=== PATIENT | male | born 1940 | race Caucasian/White ===

== ENCOUNTER → 2023-04-09 15:56 | Outpatient (REF) | payer MEDICARE, OTHER, SELFPAY | LOC: PAVMRI 15:56 | PROVIDERS: ATTENDING PHYSICIAN Orthopaedic Surgery; FAMILY PHYSICIAN Family Medicine | DX: M77.8 Other enthesopathies, not elsewhere classified (principal) | CPT/HCPCS: 73221 ==

== ENCOUNTER 2023-05-04 06:18 | Day surgery (SDC) | payer MEDICARE, OTHER, SELFPAY ==
[2023-05-04] VITALS (8 sets, daily range): BP systolic 125–177; BP diastolic 50–84; BMI 25.5
[2023-05-04] MEDS: CELEBREX 200 MG PO (12:04)
[2023-05-04] MEDS: NORMOSOL-R 1000 IV (12:07)
== END 2023-05-04 15:55 | disposition home or self-care (01) ==
LOC: SDS 06:18
PROVIDERS: ATTENDING PHYSICIAN Orthopaedic Surgery
DX: G56.02 Carpal tunnel syndrome, left upper limb (principal); M65.9 Synovitis and tenosynovitis, unspecified
CPT/HCPCS: 64721; 25115; 88304; 87070; 87075; 87205

== ENCOUNTER → 2023-05-07 12:58 | Outpatient (REF) | payer MEDICARE, OTHER, SELFPAY | LOC: DHCBC HW 12:58 | PROVIDERS: ATTENDING PHYSICIAN Internal Medicine Cardiovascular Disease; FAMILY PHYSICIAN Family Medicine | DX: R60.0 Localized edema (principal) | CPT/HCPCS: 93306 ==

== ENCOUNTER 2023-11-12 14:43 | Emergency (ER) | payer MEDICARE, OTHER, SELFPAY ==
[2023-11-12 14:47] VITALS: BP 148/73
--- NOTE | 2023-11-12 15:17 | ED.GENMED ---
History of Present Illness
<JACQUI Adams Last Filed: 11/12/23 19:49>
General
Chief Complaint: Skin Surface Trauma
Source: patient
Exam Limitations: none
Time Seen by Provider: 11/12/23 15:09
Nursing documentation reviewed up to this point in time: agreed with
History of Present Illness
History of Present Illness:
83-year-old male with past medical history of COPD, A-fib on Eliquis presenting emergency department today with concerns of a laceration to his left index finger. Patient was initially seen at urgent care they sent him here because of bone
involvement and his laceration. Patient states that today he was working with a table saw to fix a bench when he excellently cut his left index finger. Patient is right-handed. Patient states that it profusely bled. Patient reports that at
urgent care, he noted that the film demonstrated distal phalanx fracture. Patient denies any other injuries, denies any falls. Patient denies any sensory loss or paresthesias noted to his fingers. Patient denies any inability to range his fingers
or joints his upper extremities.
Past History
<JACQUI Adams Last Filed: 11/12/23 19:49>
Past History
ED Past Medical History: Arrthythmia (Atrial fib), COPD, GERD, HTN and Hypercholesterolemia
ED Past Surgical History: Cardiac (Stent X1, ablation) and Orthopedic
Social History
Tobacco: Former smoker
Alcohol: None
Drug: None
Personal:
Living: with family
Employment: Retired
Family History
Family History: Other
Review of Systems
<JACQUI Adams Last Filed: 11/12/23 19:49>
Review of Systems
All Other Systems: ROS reviewed and negative except as documented in HPI and ROS
Phy Exam
<JACQUI Adams Last Filed: 11/12/23 19:49>
Physical Exam
Physical Exam:
General: Patient is well appearing and in no acute distress; non-toxic
Skin: Warm and dry, there is a laceration on the left index finger extending circumferentially from the anterior surface of the distal finger to the posterior surface near the nail bed. There is no subungual hematoma.
Head: Normocephalic, atraumatic
Eyes: Sclera non-icteric. EOMs intact.
Cardiac: Regular rate
Pulm: Normal respiratory effort
Musculoskeletal: 5 out of 5 strength in phalanges. FDS/FDP testing intact. No flexion/extension deformity, no obvious foreign body.
Neuro: CN II-XII intact, no focal neurologic deficits. Sensation intact to light touch in bilateral upper extremities.
Psychiatric: Appropriate mood and affect.
Course
<Chata Esparza PA-C - Last Filed: 11/12/23 19:49>
Orders/Labs/Results
Orders:
Orders
11/12/23 16:19
Cephalexin Monohydrate [Keflex] 500 mg PO NOW STA
Vital Signs
Initial and Last Documented VS:
Initial Vital Signs
Temp Pulse Resp BP Pulse Ox
97.9 F 64 16 148/73 95
11/12/23 14:47 11/12/23 14:47 11/12/23 14:47 11/12/23 14:47 11/12/23 14:47
Last Documented Vital Signs
Temp Pulse Resp BP Pulse Ox
97.9 F 77 20 124/76 99
11/12/23 14:47 11/12/23 16:50 11/12/23 16:50 11/12/23 16:50 11/12/23 16:50
Keerthilt;Manish Gonzalez DO - Last Filed: 11/12/23 20:10>
Orders/Labs/Results
Orders:
Orders
11/12/23 16:19
Cephalexin Monohydrate [Keflex] 500 mg PO NOW STA
Vital Signs
Initial and Last Documented VS:
Initial Vital Signs
Temp Pulse Resp BP Pulse Ox
97.9 F 64 16 148/73 95
11/12/23 14:47 11/12/23 14:47 11/12/23 14:47 11/12/23 14:47 11/12/23 14:47
Last Documented Vital Signs
Temp Pulse Resp BP Pulse Ox
97.9 F 77 20 124/76 99
11/12/23 14:47 11/12/23 16:50 11/12/23 16:50 11/12/23 16:50 11/12/23 16:50
Procedures
<JACQUI Adams Last Filed: 11/12/23 19:49>
Laceration Closure
Left Finger:
Status of Wound: clean
Size of Wound in cm: 2.5
Description of Wound Edges: ragged and macerated
Preparation: cleaned with saline
Anesthesia: 1% Lidocaine
Wound exploration: explored to base- no FB and no tendon involvement
Type of Closure: single layer closure
Skin Closure Material: 4-0 prolene
Number of sutures: 9
<JACQUI Adams Last Filed: 11/12/23 19:49>
MDM/Problems Addressed
Differential Diagnosis Includes:
ddx include abrasion, laceration, tendon injury, phalanx fracture
MDM/Problems Addressed:
Finger laceration:
83-year-old male with past medical history of COPD, A-fib on Eliquis presenting emergency department today with concerns of a laceration to his left index finger. Patient was initially seen at urgent care they sent him here because of bone
involvement and his laceration. On physical exam, he has a laceration extending from the anterior surface of the distal first index finger to the posterior surface. Patient's x-ray notes his distal phalanx fracture in the same area. The wound was
thoroughly irrigated, wound was repaired with sutures, patient tolerated procedure well. Wound care precautions and return precautions discussed. Gave referral for hand surgery, patient placed in splint. Patient started on antibiotics
prophylactically. Patient stable for discharge.
Chronic conditions affecting care:
A-fib on Eliquis
<Chata Esparza PA-C - Last Filed: 11/12/23 19:49>
*Critical Care Note
Total Time (30-74mins, 75-104mins- exclusive of procedures): Not Applicable
ED Attending Note
<Chata Esparza PA-C - Last Filed: 11/12/23 19:49>
-
Portions of this chart may have been created with voice recognition software.� Occasional wrong word or��sound alike� substitutions may have occurred due to the inherent limitations of voice recognition software.
<Manish Gonzalez, - Last Filed: 11/12/23 20:10>
ED Attending Note
Patient seen and examined by attending physician: Yes
I performed the substantive portion of visit, reviewed & personally made and approve the management plan that is documented in note by myself or ANTONIA.: Yes
ED Attending Note:
I agree with Chata's note
Patient suffered injury to his left index finger while using a table saw. Patient went to an urgent care where they noted he had bony involvement.
Physical exam
Laceration noted to the radial aspect of the left index finger from the tip to roughly middle phalynx.
X-ray from urgent care showed distal phalynx fx.
Plan is to close wound, abx, hand f/u
Discharge Plan
Departure
Patient Disposition: Home (Routine Discharge)
Date of Disposition: 11/12/23
Time of Disposition: 16:44
Patient with high blood pressure during this ER visit?: Yes
Condition: Good
Discharge Problem:
Laceration of finger, Fracture of distal phalanx of finger, open
Instructions: Wound Care (DC), Laceration Repair With Stitches (DC), BLOOD PRESSURE
Prescriptions:
New
cephalexin 500 mg capsule
500 mg PO QID 7 Days Qty: 28 0RF
No Action
multivitamin [Daily Multi-Vitamin] 1 EACH tablet
1 ea PO DAILY@1200
gabapentin 300 MG capsule
300 mg PO TID
nitroglycerin 0.4 MG tablet, sublingual
0.4 mg sublingual [id number] PRN (Reason: chest pain) Qty: 30 3RF
morphine 15 MG tablet extended release
15 mg PO BID
Eliquis 5 MG tablet
5 mg PO BID
albuterol sulfate 2.5 MG/3 ML solution for nebulization
2.5 mg inhalation PRN PRN (Reason: sob)
cyanocobalamin (vitamin B-12) 1,000 MCG tablet
1,000 mcg PO DAILY
sertraline 25 MG tablet
50 mg PO DAILY
metoprolol succinate 25 MG tablet extended release 24 hr
50 mg PO HS
finasteride 5 MG tablet
5 mg PO DAILY@1200
prednisone 5 mg tablet
2.5 mg PO DAILY@1200
hydrocodone-acetaminophen 10-325 mg tablet
1 tab PO QID
pantoprazole 40 mg tablet,delayed release (DR/EC)
40 mg PO DAILY
Qvar RediHaler 40 mcg/actuation HFA aerosol breath activated
1 inh INHALATION BIDPRN PRN (Reason: SOB/breathing issues )
sennosides [Senokot] 8.6 mg Tablet
17.2 mg PO PRN PRN (Reason: constipation)
ascorbic acid (vitamin C) [Vitamin C] 500 mg Tablet
500 mg PO DAILY
furosemide 20 mg Tablet
20 mg PO DAILY
alfuzosin 10 mg Tablet Extended Release 24 Hr
10 mg PO DAILY
calcium
1 tab PO DAILY
acetaminophen 500 mg Tablet
1,000 mg PO Q6H PRN (Reason: pain)
Referrals:
NONE,* [Active] -
Mega Sanchez MD [Active] - Call in 1-3 days for appt
Activity Restrictions/Additional Instructions:
Keflex has been sent to your pharmacy. Starting tomorrow, please take one tablet 4 times daily for 7 days.
Please keep the wound dry for 24 hours, after 24 hours, you can allow mild soapy water to run over the wound. Please do not scrub the wound. If you notice any pussy drainage from the wound, increasing pain, surrounding redness, fevers or chills,
please return to the emergency department.
Please call the attached number to schedule an appointment to follow-up with hand surgeon.
Interventions
Interventions:
*Risk Screen - Suicide Last Done: 11/12/23 15:20
*General Assessment Last Done: 11/12/23 15:20
*Neglect/Abuse Screening Last Done: 11/12/23 15:20
*Nursing Disposition Last Done: 11/12/23 17:08
ED-Skin Assessment Last Done: 11/12/23 15:20
Discharge Date and Time
Discharge Date/Time: 11/12/23 17:09
Print Language: MONEGASQUE
[2023-11-12] MEDS: KEFLEX 500 MG PO (16:24)
[2023-11-12 16:50] VITALS: BP 124/76
== END 2023-11-12 17:09 | disposition home or self-care (01) ==
LOC: EMR 14:43
PROVIDERS: EMERGENCY PHYSICIAN Emergency Medicine; FAMILY PHYSICIAN Family Medicine
DX: S62.631B Displaced fracture of distal phalanx of left index finger, initial encounter for open fracture (principal); W31.2XXA Contact with powered woodworking and forming machines, initial encounter; Y99.0 Civilian activity done for income or pay; I48.91 Unspecified atrial fibrillation; J44.9 Chronic obstructive pulmonary disease, unspecified; E78.00 Pure hypercholesterolemia, unspecified; I10 Essential (primary) hypertension; K21.9 Gastro-esophageal reflux disease without esophagitis; Z79.01 Long term (current) use of anticoagulants; Z87.891 Personal history of nicotine dependence
CPT/HCPCS: 12001; 99282

== ENCOUNTER 2024-01-06 07:25 | Emergency (ER) | payer MEDICARE, OTHER, SELFPAY ==
[2024-01-06 07:26] VITALS: BP 118/85
--- NOTE | 2024-01-06 07:34 | ED.GENMED ---
History of Present Illness
General
Chief Complaint: Dental Problem
Time Seen by Provider: 01/06/24 07:32
History of Present Illness
History of Present Illness:
TIME OF INITIAL ENCOUNTER: 7:35 AM
HPI: 2 days ago, the patient had extraction of all his teeth. He held his Eliquis for 3 days but then resumed the Eliquis later that day. He was given a TXA oral rinse which has not helped much with the bleeding. He comes in here today because of
worsening bleeding. He has no pain or other concerns.
EXAM:
GENERAL: Well appearing in no distress, however he arrives biting down on gauze
HEENT: Moist oral mucosa, there is mild amount of active bleeding from the left upper greater than left lower gingiva, he is edentulous
CARDIAC: He is in a regular rhythm
NEUROLOGIC: Excellent strength all extremities, no obvious coordination deficits
PSYCHIATRIC: Appropriate mental status, normal insight and judgement
EXTREMITIES: Nontender, no edema, moves all extremities equally
SKIN: No rash, no lesions
NUMBER AND COMPLEXITY OF PROBLEMS ADDRESSED AT THE ENCOUNTER
� Chronic conditions affecting care: A-fib on Eliquis, high blood pressure, COPD
� Acute Exacerbation and/or Progression of Chronic Illness: This is an acute problem
� Differential Diagnosis includes: Coagulopathy, gingival bleeding
AMOUNT AND/OR COMPLEXITY OF DATA TO BE REVIEWED AND ANALYZED
� I performed an independent evaluation of and my interpretation is:
EKG:
CT:
X-rays:
Laboratory Studies:
Other:
� Review of other/old records: In 2021 the patient was here with diastolic heart failure and found to be anemic
� Clinical information was obtained by an independent historian: Spoke to at bedside
� Prescriptions/Medications Considered but not given:
� Further testing considered but not performed:
RISK OF COMPLICATIONS AND/OR MORBIDITY OR MORTALITY OF PATIENT MANAGEMENT
� Social determinants of health affecting care: Lives at home
� Discussion with other providers:
� Escalation of care including admission/observation vs risk of discharge considered: The patient did not take his Eliquis yet today. Will have him hold off on Eliquis for today. I did use TXA and soaked Surgicel and placed
another pressure dressing which she is biting down on
ANY OTHER UPDATES:
8:30 AM: Earlier, I gave TXA soaked Surgicel as he bit down with 4 x 4's. Bleeding persisted. I then used lidocaine with epinephrine and injected into the bleeding site in the left upper gingiva. I then soaked additional TXA on gauze and had an
bite down and manually placed pressure. Call placed to Dr. Ambriz.
9:15 AM: I spoke to his OMFS who recommended trying thrombin�thrombin has been reconstituted and placed in gauze and placed on to the affected area with pressure
10 AM: There is only scant if any bleeding on reassessment. He has been observed here for 2-1/2 hours.
Past History
Past History
ED Past Medical History: Arrthythmia (Atrial fib), COPD, GERD, HTN and Hypercholesterolemia
ED Past Surgical History: Cardiac (Stent X1, ablation) and Orthopedic
Social History
Tobacco: Former smoker
Alcohol: None
Drug: None
Personal:
Living: with family
Employment: Retired
Family History
Family History: Other
Phy Exam
Physical Exam
Physical Exam:
See HPI
Course
Orders/Labs/Results
Orders:
Orders
01/06/24 07:39
Tranexamic Acid 1,000 mg .ROUTE .STK-MED ONE
01/06/24 08:58
Thrombin Topical (Bovine) [Thrombin-Jmi 27280 Unit Vial] 20,000 units .ROUTE .STK-MED ONE
Vital Signs
Initial and Last Documented VS:
Initial Vital Signs
Pulse Resp BP Pulse Ox
77 18 118/85 94
01/06/24 07:26 01/06/24 07:26 01/06/24 07:26 01/06/24 07:26
Last Documented Vital Signs
Pulse Resp BP Pulse Ox
77 18 162/73 95
01/06/24 07:26 01/06/24 07:26 01/06/24 10:00 01/06/24 10:00
Procedures
Other
Indication for procedure:: Postoperative intraoral bleeding
Procedure completed by: Ct, Dr. Stringer
Consent form signed: No
Additional Procedure:
The patient arrived with significant amount of bleeding to the left upper gingival region. I initially placed TXA soaked Surgicel along with direct pressure. We then tried lidocaine with epinephrine injection. Additional TXA was used. Additional
Surgicel was used. I spoke to the oral surgeon who recommended trying thrombin. We did reconstitute thrombin and placed this twice. No significant bleeding on reassessment at 10 AM.
*Critical Care Note
Total Time (30-74mins, 75-104mins- exclusive of procedures): Not Applicable
ED Attending Note
-
Portions of this chart may have been created with voice recognition software.� Occasional wrong word or��sound alike� substitutions may have occurred due to the inherent limitations of voice recognition software.
Discharge Plan
Departure
Patient Disposition: Home (Routine Discharge)
Date of Disposition: 01/06/24
Time of Disposition: 09:58
Patient with high blood pressure during this ER visit?: Yes
Discharge Problem:
Post-op bleeding
Prescriptions:
No Action
multivitamin [Daily Multi-Vitamin] 1 EACH tablet
1 ea PO DAILY@1200
gabapentin 300 MG capsule
300 mg PO TID
nitroglycerin 0.4 MG tablet, sublingual
0.4 mg sublingual [id number] PRN (Reason: chest pain) Qty: 30 3RF
morphine 15 MG tablet extended release
15 mg PO BID
Eliquis 5 MG tablet
5 mg PO BID
albuterol sulfate 2.5 MG/3 ML solution for nebulization
2.5 mg inhalation PRN PRN (Reason: sob)
cyanocobalamin (vitamin B-12) 1,000 MCG tablet
1,000 mcg PO DAILY
sertraline 25 MG tablet
50 mg PO DAILY
metoprolol succinate 25 MG tablet extended release 24 hr
50 mg PO HS
finasteride 5 MG tablet
5 mg PO DAILY@1200
prednisone 5 mg tablet
2.5 mg PO DAILY@1200
hydrocodone-acetaminophen 10-325 mg tablet
1 tab PO QID
pantoprazole 40 mg tablet,delayed release (DR/EC)
40 mg PO DAILY
Qvar RediHaler 40 mcg/actuation HFA aerosol breath activated
1 inh INHALATION BIDPRN PRN (Reason: SOB/breathing issues )
sennosides [Senokot] 8.6 mg Tablet
17.2 mg PO PRN PRN (Reason: constipation)
ascorbic acid (vitamin C) [Vitamin C] 500 mg Tablet
500 mg PO DAILY
furosemide 20 mg Tablet
20 mg PO DAILY
alfuzosin 10 mg Tablet Extended Release 24 Hr
10 mg PO DAILY
calcium
1 tab PO DAILY
acetaminophen 500 mg Tablet
1,000 mg PO Q6H PRN (Reason: pain)
cephalexin 500 mg capsule
500 mg PO QID 7 Days Qty: 28 0RF
Referrals:
Paty Lim DO [Family Provider] -
Activity Restrictions/Additional Instructions:
Hold Eliquis today. We used Surgicel twice, topical TXA, lidocaine with epinephrine injection, direct pressure, and thrombin. Please follow-up with your oral surgeon. He said that you could see him tomorrow in your [place] office. He
recommends a cool liquid diet for the next few days.
Interventions
Interventions:
*Risk Screen - Suicide Last Done: 01/06/24 07:26
*General Assessment Last Done: 01/06/24 07:26
*Neglect/Abuse Screening Last Done: 01/06/24 07:26
ED- Fall Risk Assessment Last Done: 01/06/24 07:36
*ED COVID-19 Vaccine History Last Done: 01/06/24 07:26
Discharge Date and Time
Print Language: PANAMANIAN
[2024-01-06 07:36] VITALS: BMI 25.0
[2024-01-06 09:41] VITALS: BP 171/74
[2024-01-06 10:00] VITALS: BP 162/73
== END 2024-01-06 10:12 | disposition home or self-care (01) ==
LOC: EMR 07:25
PROVIDERS: EMERGENCY PHYSICIAN Emergency Medicine; FAMILY PHYSICIAN Family Medicine
DX: K91.840 Postprocedural hemorrhage of a digestive system organ or structure following a digestive system procedure (principal); Y83.8 Other surgical procedures as the cause of abnormal reaction of the patient, or of later complication, without mention of misadventure at the time of the procedure; Z98.818 Other dental procedure status; E78.00 Pure hypercholesterolemia, unspecified; I10 Essential (primary) hypertension; J44.9 Chronic obstructive pulmonary disease, unspecified; K21.9 Gastro-esophageal reflux disease without esophagitis; Z87.891 Personal history of nicotine dependence; Z95.5 Presence of coronary angioplasty implant and graft; Z79.01 Long term (current) use of anticoagulants
CPT/HCPCS: 99283

== ENCOUNTER → 2024-07-28 13:02 | Outpatient (REF) | payer MEDICARE, OTHER, SELFPAY | LOC: HWRAD 13:02 | PROVIDERS: ATTENDING PHYSICIAN Internal Medicine Rheumatology; FAMILY PHYSICIAN Family Medicine; OTHER PHYSICIAN Internal Medicine Critical Care Medicine; REFERRING PHYSICIAN Internal Medicine Rheumatology | DX: M06.09 Rheumatoid arthritis without rheumatoid factor, multiple sites (principal); J98.4 Other disorders of lung; M81.0 Age-related osteoporosis without current pathological fracture | CPT/HCPCS: 71046; 77080; 77081 ==